=== PATIENT | male | born 1965 | race Caucasian/White ===

== ENCOUNTER 2023-12-19 07:14 | Emergency (ER) | payer SELFPAY ==
[2023-12-19 07:27] VITALS: BP 138/95
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
[2023-12-19] MEDS: ADACEL 0.5 ML IM (08:38)
[2023-12-19] MEDS: MOTRIN 600 MG PO (08:38)
[2023-12-19 10:29] VITALS: BP 130/83
== END 2023-12-19 10:39 | disposition home or self-care (01) ==
LOC: EMR 07:14
PROVIDERS: EMERGENCY PHYSICIAN Emergency Medicine; FAMILY PHYSICIAN Internal Medicine
DX: S29.012A Strain of muscle and tendon of back wall of thorax, initial encounter (principal); S39.012A Strain of muscle, fascia and tendon of lower back, initial encounter; S61.412A Laceration without foreign body of left hand, initial encounter; S60.012A Contusion of left thumb without damage to nail, initial encounter; V89.2XXA Person injured in unspecified motor-vehicle accident, traffic, initial encounter; Y99.0 Civilian activity done for income or pay; Z23 Encounter for immunization
CPT/HCPCS: 99285; 90471; 71046; 72050; 72072; 72110; 73030; 73140; 90715; 93005